=== PATIENT | female | born 1945 | race Caucasian/White ===

== ENCOUNTER 2022-10-26 20:03 | Emergency (ER) | payer MEDICARE, OTHER ==
[~2022-10-26] VITALS: Ht 160 cm; Wt 65.0 kg
[~2022-10-26 20:03] MED LIST: ASPI-845 PO; CARV3.12 PO; ESTR1TAB19 PO; FLUO20CA39 PO; METF-436 PO; THYR30TA2 PO
[2022-10-26 20:08] VITALS: BP 137/71; PULSE 82; RESP 18; TEMP 97.2; O2SAT 95
[2022-10-26] MEDS ORDERED: dexamethasone sod phosphate 10mg/ml inj IM STA (21:12)
[2022-10-26] MEDS ORDERED: NAPR-56 PO (21:19)
== END 2022-10-26 21:48 | disposition home or self-care (01) ==
LOC: ER 20:04
DX: M25.552 Pain in left hip (principal); Z79.899 Other long term (current) drug therapy
CPT/HCPCS: 73522; 96372; 99283; J1100